=== PATIENT | female | born 1970 | race Hispanic/Latino ===

== ENCOUNTER 2021-09-26 18:18 | Emergency (ER) | payer SELFPAY ==
[2021-09-26 18:27] VITALS: BP 110/82
== END 2021-09-27 14:21 | disposition left against medical advice (07) ==
LOC: ED 18:18
DX: R07.9 Chest pain, unspecified (principal); Z53.21 Procedure and treatment not carried out due to patient leaving prior to being seen by health care provider; V89.2XXA Person injured in unspecified motor-vehicle accident, traffic, initial encounter; Y93.89 Activity, other specified; Y92.89 Other specified places as the place of occurrence of the external cause; Y99.8 Other external cause status